=== PATIENT | male | born 1980 | race African-American/Black ===

== ENCOUNTER 2021-08-12 15:09 | Emergency (ER) | payer BC ==
[~2021-08-12] VITALS: Ht 172.7 cm; Wt 84.1 kg
[2021-08-12] MEDS ORDERED: LIDOCAINE 2%/EPI 1:100,000 20 ML VIAL. IJ ONE (15:30)
[2021-08-12] MEDS ORDERED: NEOMY/BACITR/POLYMYXIN OINT PACKET. TP ONE (15:30)
--- NOTE | 2021-08-12 15:34 | PHYS DOC ---
Past History Past Medical History: No Pertinent History Additional Past Surgical Histo: [place] teeth removal Smoking: Non-smoker Alcohol Use: Occasionally Drug Use: None General Adult HPI: HPI: Patient is a 41 year old male who presents for a wound to his left foot after a chainsaw incident at 10AM today. He states he was doing yard work when the chainsaw cut through his boot and sock into his foot. He states there was "not much" bleeding after the incident. He has full sensation to his left foot and can move his foot and toes. After the incident he put betadine, hydrogen peroxide, and triple antibiotic ointment over the wound. He also placed an ice pack. Pt took 1g Tylenol around 12:00PM today. He notes he had three episodes of vomiting after the incident which he says is due to the sight of the wound making him nauseous. He otherwise is not having any symptoms. Review of Systems: Review of Systems: Constitutional: Denies fever or chills HENT: Denies nasal congestion or sore throat Respiratory: Denies cough or shortness of breath Cardiovascular: Denies chest pain or palpitations GI: Reports vomiting, Denies abdominal pain Musculoskeletal: Reports wound to left first and second toes, no swelling Integument: Wound to left foot (see above) Neurologic: Denies numbness or tingling to left foot Complete systems were reviewed and found to be within normal limits, except as documented in this note. Current Medications: Current Meds: Current Medications Medications (Trade) Dose Ordered Sig/Jeet Start Time Stop Time Status Last Admin Dose Admin Lidocaine/ Epinephrine (Xylocaine 2%-Epi 1:100,000) 20 ml 1X ONCE 08/12/21 15:30 08/12/21 15:31 UNV Neomycin/ Polymyxin/ Bacitracin (Triple Antibiotic Ointment) 1 pkt 1X ONCE 08/12/21 15:30 08/12/21 15:31 UNV Physical Exam: PE: Constitutional: Well developed, well nourished, no acute distress HENT: Normocephalic, atraumatic Eyes: Conjunctiva normal, no discharge Neck: Normal range of motion, supple Lungs & Thorax: No respiratory distress, equal chest rise and fall Skin: 2cm laceration to left first digit with minimal bleeding, 1cm laceration to left second digit with minimal bleeding Extremities: Tenderness to palpation of left foot lacerations, ROM intact Neurologic: Alert and oriented X 3, normal motor function, normal sensory function, no focal deficits noted Psychologic: Affect normal, judgment normal EKG: EKG: [] Radiology/Procedures: Radiology/Procedures: PROCEDURE: FOOT LEFT 3V Three-view left foot HISTORY: First and second toe laceration with chain saw AP lateral oblique views There is bony destruction of the medial cortex of the distal portion of the proximal phalanx of the great toe and there is bony density which projects laterally. There is no radiopaque foreign body. IMPRESSION: Acute bony injury to the distal aspect of the proximal phalanx of the great toe. Electronically signed by: Vladimir Ramírez III, MD (08/12/2021 4:08 PM) [facility][] Heart Score: C/O Chest Pain: N/A Course & Med Decision Making: Course & Med Decision Making Pertinent Labs and Imaging studies reviewed. (See chart for details) Patient presented s/p chainsaw incident earlier this morning causing lacerations to both the great and second toe of left foot. Left foot x-ray ordered which showed bony destruction on great toe. [] Dragon Disclaimer: Dragon Disclaimer: This electronic medical record was generated, in whole or in part, using a voice recognition dictation system. Splinting Splinting : Location: Left foot Pre-Made Type: Post op shoe Pre-Proc Neuro Vasc Exam: normal Post-Proc Neuro Vasc Exam: normal, unchanged from pre-exam Laceration/Wound Repair Progress Verbal consent obtained. Time out performed. Hand hygiene utilized. Wound cleaned with ChloraPrep. Anesthesia obtained via a 25-gauge hypodermic needle with () mL's of lidocaine 2% with epinephrine. Copious irrigation performed. Wound well approximated with (sutures/mervin). Patient tolerated procedure well and without difficulty. Empiric antibiotic ointment applied prior to sterile dressing. Departure Departure: Impression: Primary Impression: Laceration of toe involving extensor tendon Qualified Codes: S96.129A - Laceration of muscle and tendon of long extensor muscle of toe at ankle and foot level, unspecified foot, initial encounter Additional Impression: Open fracture of toe of left foot Qualified Codes: S92.415B - Nondisplaced fracture of proximal phalanx of left great toe, initial encounter for open fracture Disposition: HOME / SELF CARE / HOMELESS Condition: STABLE Referrals: PCP,FRANCESCA (PCP) KRISTA MARY DPM Patient Instructions: Cast Shoe, Crutch Use, [id number], Laceration Care, Adult, [id number], Toe Fracture, [id number] Additional Instructions: Take over the counter Ibuprofen as needed for pain. May use in addition to prescribed pain medication. Do not soak your wound. You may shower. Clean wound daily with soap and water. Change dressing 2 times daily. Use over the counter antibiotic ointment with each dressing change. Sutures need to be removed in 7-10 days. Present to your family doctor or local urgent care for removal. You may also present to the ED but it will be an additional visit/charge. Dr. Mary has been made aware of your injury and need for close follow up. There office should call you with an appointment in the morning. You may call if you haven't heard from them by 1030AM. Scripts Clindamycin Hcl (CLINDAMYCIN HCL) 300 Mg Capsule 1 CAP PO TID for Toe wound for 10 Days, #30 CAP Prov: REYNALDO ELLIS DO 08/12/21 Ciprofloxacin Hcl (CIPRO) 500 Mg Tablet 1 TAB PO BID for Toe wound for 10 Days, #20 TAB Prov: REYNALDO ELLIS DO 08/12/21 Hydrocodone Bit/Acetaminophen (HYDROCODONE-APAP 5-325 ) 1 Each Tablet 0.5-1 TAB PO PRN Q6HRS PRN for PAIN, #10 TAB 0 Refills Prov: REYNALDO ELLIS DO 08/12/21 REYNALDO ELLIS DO Aug 12, 2021 15:33
[2021-08-12] MEDS ORDERED: CEPHALEXIN 250 MG CAPSULE PO ONE (15:45)
[2021-08-12] MEDS ORDERED: CEPH500C PO (15:51)
[2021-08-12] MEDS ORDERED: HYDR-2155 PO (15:51)
--- NOTE | 2021-08-12 16:10 | RAD ---
Three-view left foot HISTORY: First and second toe laceration with chain saw AP lateral oblique views There is bony destruction of the medial cortex of the distal portion of the proximal phalanx of the g reat toe and there is bony density which projects laterally. There is no radiopaque foreign body. IMPRESSION: Acute bony injury to the distal aspect of the proximal phalanx of the great toe. Electronically signed by: Vladimir Ramírez III, MD (08/12/2021 4:08 PM) [facility]
[2021-08-12] MEDS ORDERED: CLIN-95 PO (17:23)
[2021-08-12] MEDS ORDERED: CIPR500T94 PO (17:23)
[2021-08-12] MEDS ORDERED: IV NORMAL SALINE 50ML 50 ML ONE (17:24)
[2021-08-12] MEDS ORDERED: PIPERACILLIN/TAZOBACTAM 3.375 GM VIAL IV ONE (17:24)
[2021-08-12] MEDS ORDERED: PIPERACILLIN/TAZOBACTAM 3.375 GM in IV NORMAL SALINE 50ML 50 ML IV ONE (17:30)
[2021-08-12 18:15] VITALS: BP 144/87
== END 2021-08-12 18:15 | disposition home or self-care (01) ==
LOC: ER 15:09
DX: S92.405B Nondisplaced unspecified fracture of left great toe, initial encounter for open fracture (principal); S96.122A Laceration of muscle and tendon of long extensor muscle of toe at ankle and foot level, left foot, initial encounter; X58.XXXA Exposure to other specified factors, initial encounter; Y93.89 Activity, other specified; Y92.89 Other specified places as the place of occurrence of the external cause; Y99.8 Other external cause status
CPT/HCPCS: 73630; 96365; 99284; J2543

== ENCOUNTER → 2021-09-20 | Outpatient (CLI) | payer BC ==
[~2021-09-20] MED LIST: CEPH500C PO; CIPR500T94 PO; CLIN-95 PO; HYDR-2155 PO
--- NOTE | 2021-09-20 09:36 | RAD ---
EXAM: XR LT TOE 2+ VIEWS 09/20/2021 9:21 AM CLINICAL INDICATION: Open wound on left first toe COMPARISON: Left foot radiograph 08/12/2021 TECHNIQUE: AP and lateral views of the left great toe FINDINGS: There is slightly cortical destruction along the dorsal lateral aspect of the great toe pr oximal phalanx near the interphalangeal joint with a new pathologic fracture. No soft tissue gas. 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 There is dorsal soft tissue swelling of the great toe. IMPRESSION: Slightly worsened cortical destruction and a new pathologic fracture of the great toe pr oximal phalanx suspicious for osteomyelitis. Electronically signed by: Miriam Anthony MD (09/20/2021 9:34 AM) [id number]
== END ==
LOC: RAD 09:14
PROVIDERS: ATTEND Podiatrist
DX: S91.109D Unspecified open wound of unspecified toe(s) without damage to nail, subsequent encounter (principal); M84.478A Pathological fracture, left toe(s), initial encounter for fracture; X58.XXXD Exposure to other specified factors, subsequent encounter
CPT/HCPCS: 73660